=== PATIENT | female | born 1970 | race Caucasian/White ===

== ENCOUNTER 2017-08-05 00:32 | Observation (INO) | payer MEDICARE, MEDICAID ==
[2017-08-05 00:32] VITALS: BMI 29.2
[2017-08-05] MEDS ORDERED: Sodium Chloride 0.9% 1,000 ML IV STA (01:12)
--- NOTE | 2017-08-05 01:14 | ED PDOC ---
HPI:Nausea, Vomiting, Diarrhea Time Seen by Provider: 08/05/17 00:39 Chief Complaint (Nursing): Dizziness/Lightheaded Chief Complaint (Provider): gi problem History Per: Patient History/Exam Limitations: no limitations Onset/Duration Of Symptoms: Days (x1) Current Symptoms Are (Timing): Still Present Additional Complaint(s): Mili You is a 46 year old female with previous medical history of cerebral palsy and multiple sclerosis, who presents to the emergency department with a complaint of multiple episodes of non-bloody, non-bilious vomiting associated with nausea, dizziness onset of baclofen medication after having increased muscle spasms ongoing for 1 day. Denied toleration of PO fluids, fever , chills, cough, shortness of breath, chest pain or diarrhea. PMD: Doug You MD Past Medical History Reviewed: Historical Data, Nursing Documentation, Vital Signs Vital Signs: Last Vital Signs Temp 98.5 F 08/05/17 00:42 Pulse 101 H 08/05/17 00:42 Resp 98 H 08/05/17 00:42 BP 186/117 H 08/05/17 00:42 Pulse Ox 18 L 08/05/17 00:42 - Medical History PMH: Anxiety (not on meds), Depression, HTN, Migraine, Multiple Sclerosis Denies: HIV, Chronic Kidney Disease Other PMH: cerebral palsy - Family History Family History: States: Hypertension - Immunization History Hx Influenza Vaccination: Yes - Home Medications Home Medications: Ambulatory Orders Medication Instructions Recorded Metoprolol Succinate [Toprol XL] 100 mg PO DAILY #0 tab 12/18/14 Sertraline [Zoloft] 100 mg PO DAILY #0 tab 12/18/14 Topiramate [Topamax] 25 mg PO TID #0 tab 12/18/14 amLODIPine [Norvasc] 5 mg PO DAILY #0 tab 12/18/14 ARIPiprazole [Abilify] 5 mg PO DAILY 08/05/17 Baclofen [Lioresal] 10 mg PO DAILY 08/05/17 Famotidine [Pepcid] 20 mg PO BID 08/05/17 Naproxen [Naprosyn] 500 mg PO DAILY 08/05/17 diaZEpam [Valium] 5 mg PO DAILY 08/05/17 - Allergies Allergies/Adverse Reactions: Allergies Allergy/AdvReac Type Severity Reaction Status Date / Time Penicillins Allergy RASH Verified 08/05/17 00:45 Review of Systems ROS Statement: Except As Marked, All Systems Reviewed And Found Negative Constitutional: Negative for: Fever, Chills Cardiovascular: Negative for: Chest Pain Respiratory: Negative for: Cough, Shortness of Breath Gastrointestinal: Positive for: Nausea, Vomiting (non-bloody, non-bilious). Negative for: Diarrhea, Other (toleration of PO fluids) Neurological: Positive for: Dizziness Physical Exam - Reviewed Nursing Documentation Reviewed: Yes Vital Signs Reviewed: Yes - Physical Exam Appears: Positive for: Well, Non-toxic, No Acute Distress Head Exam: Positive for: ATRAUMATIC, NORMAL INSPECTION, NORMOCEPHALIC Skin: Positive for: Normal Color Eye Exam: Positive for: Normal appearance ENT: Positive for: Other (dry mucous membranes). Negative for: Normal ENT Inspection Neck: Positive for: Normal, Painless ROM, Supple. Negative for: Decreased ROM Cardiovascular/Chest: Positive for: Regular Rate, Rhythm, Chest Non Tender Respiratory: Positive for: Normal Breath Sounds, Accessory Muscle Use. Negative for: Decreased Breath Sounds, Respiratory Distress Gastrointestinal/Abdominal: Positive for: Normal Exam, Bowel Sounds, Soft. Negative for: Tenderness Extremity: Positive for: Normal ROM. Negative for: Tenderness, Pedal Edema, Deformity Neurologic/Psych: Positive for: Alert, Oriented - Laboratory Results Result Diagrams: 08/05/17 01:16 08/05/17 01:16 - ECG O2 Sat by Pulse Oximetry: 18 Medical Decision Making Medical Decision Making: Initial Impression: Nausea, vomiting, dizziness onset of baclofen Initial Plan: * EKG * Alcohol serum * CMP * Poison control consult * Urine * CBC * Accucheck Time: 0130 --Labs: no significant abnormalities noted. --Upon provider reevaluation, patient still has persistent nausea. --Discussed case with Dr. Ahumada who is covering for Dr. Doug You. Clinical Impression: Scribe Attestation: Documented by Lizzie Hoang, acting as a scribe for Ra Lopes MD. Provider Scribe Attestation: All medical record entries made by the Scribe were at my direction and personally dictated by me. I have reviewed the chart and agree that the record accurately reflects my personal performance of the history, physical exam, medical decision making, and the department course for this patient. I have also personally directed, reviewed, and agree with the discharge instructions and disposition. Disposition - Clinical Impression Clinical Impression: Dizziness, Intractable vomiting - Patient ED Disposition Is Patient to be Admitted: Yes Discussed With : Marquez Ahumada - Disposition Disposition Time: 01:30 Condition: FAIR - Pt Status Changed To: Hospital Disposition Of: Observation
[2017-08-05 01:21] LABS: BASO # 0.1 K/uL (0.0-0.2); BASO % 0.6 % (0.0-2.0); EOS # 0.1 K/uL (0.0-0.7); EOS % 0.5 % (0.0-4.0); HEMATOCRIT 45.6 % (34.0-47.0); LYMPH # 2.4 K/uL (1.0-4.3); LYMPH % 17.3 % (20.0-40.0); MEAN CELL VOLUME 86.6 fl (81.0-99.0); MEAN CORPUSCULAR HEMOGLOBIN 28.1 pg (27.0-31.0); MEAN CORPUSCULAR HGB CONC 32.5 g/dL (33.0-37.0); MONO # 0.7 K/uL (0.0-0.8); MONO % 4.7 % (0.0-10.0); NEUT # 10.8 K/uL (1.8-7.0); NEUT % 76.9 % (50.0-75.0); NRBC % 0.1 % (0.0-0.0); RED CELL DISTRIBUTION WIDTH 14.7 % (11.5-14.5)
[2017-08-05 01:30] LABS: ALB/GLOB RATIO 1.3 (1.0-2.1); ALCOHOL SERUM < 10 mg/dl (0-10); ALKALINE PHOSPHATASE 69 U/L (38-126); ALT/SGPT 30 U/L (9-52); AST/SGOT 24 U/L (14-36); BILIRUBIN,TOTAL 0.6 mg/dl (0.2-1.3); BLOOD UREA NITROGEN 18 mg/dl (7-17); CALCIUM 9.6 mg/dL (8.4-10.2); CARBON DIOXIDE 24 mmol/L (22-30); CHLORIDE 104 mmol/L (98-107); GFR AFRICAN-AMERICAN > 60; GLUCOSE,RANDOM 124 mg/dL (65-105); SODIUM 144 mmol/l (132-148); TOTAL PROTEIN 8.3 G/DL (6.3-8.2)
[2017-08-05] MEDS ORDERED: Dextrose 5%/Lactated Ringer's 1,000 ML IV SCH (06:30)
[2017-08-05 12:32] LABS: HEMATOCRIT 39.4 % (34.0-47.0); MEAN CELL VOLUME 84.7 fl (81.0-99.0); MEAN CORPUSCULAR HEMOGLOBIN 28.6 pg (27.0-31.0); MEAN CORPUSCULAR HGB CONC 33.8 g/dL (33.0-37.0); RED CELL DISTRIBUTION WIDTH 14.9 % (11.5-14.5); WHITE BLOOD COUNT 11.8 K/uL (4.8-10.8)
[2017-08-05] MEDS: Metoprolol Succinate 100 mg XL Tab PO SCH (13:34)
--- NOTE | 2017-08-05 16:36 | CARD ---
APPROVED REPORT EKG Measurement Heart [id number] <Conclusion> Normal sinus rhythm Nonspecific T wave abnormality Abnormal ECG
--- NOTE | 2017-08-06 00:20 | CP.PCM.HP ---
History of Present Illness - History of Present Illness History of Present Illness: This is a 46 y/o female with hx of MS and cerebral palsy was admitted for intractable vomiting and dizziness for a day. Took some baclofen but to avail Claims that she had multiple episodes of nonbloody and nonbilious vomiting. Past Patient History - Past Medical History & Family History Past Medical History?: Yes - Past Social History Smoking Status: Never Smoked - CARDIAC Hx Hypertension: Yes - PULMONARY Hx Respiratory Disorders: No - NEUROLOGICAL Hx Migraine: Yes Hx Multiple Sclerosis: Yes - HEENT Hx HEENT Problems: No - RENAL Hx Chronic Kidney Disease: No - ENDOCRINE/METABOLIC Hx Endocrine Disorders: No - HEMATOLOGICAL/ONCOLOGICAL Hx Human Immunodeficiency Virus (HIV): No - INTEGUMENTARY Hx Dermatological Problems: No - MUSCULOSKELETAL/RHEUMATOLOGICAL Hx Falls: Yes - GASTROINTESTINAL Hx Gastrointestinal Disorders: No - GENITOURINARY/GYNECOLOGICAL Hx Genitourinary Disorders: No - PSYCHIATRIC Hx Substance Use: No - SURGICAL HISTORY Hx Surgeries: No - ANESTHESIA Hx Anesthesia: Yes Hx Anesthesia Reactions: Yes Hx Malignant Hyperthermia: No Meds Allergies/Adverse Reactions: Allergies Allergy/AdvReac Type Severity Reaction Status Date / Time Penicillins Allergy RASH Verified 08/05/17 00:45 Results - Vital Signs Recent Vital Signs: Last Vital Signs Temp 98.5 F 08/05/17 16:15 Pulse 91 H 08/05/17 16:15 Resp 20 08/05/17 16:15 BP 134/88 08/05/17 16:15 Pulse Ox 93 L 08/05/17 16:15 - Labs Result Diagrams: 08/05/17 12:10 08/05/17 01:16 Labs: Laboratory Results - last 24 hr 08/05/17 08/05/17 08/05/17 01:16 01:16 01:16 WBC 14.0 H RBC 5.27 H Hgb 14.8 Hct 45.6 MCV 86.6 MCH 28.1 MCHC 32.5 L RDW 14.7 H Plt Count 266 MPV 9.0 Neut % (Auto) 76.9 H Lymph % (Auto) 17.3 L [place] % (Auto) 4.7 Eos % (Auto) 0.5 Baso % (Auto) 0.6 Neut # 10.8 H Lymph # 2.4 [place] # 0.7 Eos # 0.1 Baso # 0.1 Sodium 144 Potassium 4.0 Chloride 104 Carbon Dioxide 24 Anion Gap 20 BUN 18 H Creatinine 1.0 Est GFR ( Amer) > 60 Est GFR (Non-Af Amer) > 60 POC Glucose (mg/dL) 125 H Random Glucose 124 H Calcium 9.6 Total Bilirubin 0.6 AST 24 ALT 30 Alkaline Phosphatase 69 Total Protein 8.3 H Albumin 4.7 Globulin 3.6 Albumin/Globulin Ratio 1.3 Urine Opiates Screen Urine Methadone Screen Ur Barbiturates Screen Ur Phencyclidine Scrn Ur Amphetamines Screen U Benzodiazepines Scrn U Oth Cocaine Metabols U Cannabinoids Screen Alcohol, Quantitative < 10 08/05/17 08/05/17 03:39 12:10 WBC 11.8 H RBC 4.65 Hgb 13.3 Hct 39.4 MCV 84.7 MCH 28.6 MCHC 33.8 RDW 14.9 H Plt Count 233 MPV Neut % (Auto) Lymph % (Auto) [place] % (Auto) Eos % (Auto) Baso % (Auto) Neut # Lymph # [place] # Eos # Baso # Sodium Potassium Chloride Carbon Dioxide Anion Gap BUN Creatinine Est GFR ( Amer) Est GFR (Non-Af Amer) POC Glucose (mg/dL) Random Glucose Calcium Total Bilirubin AST ALT Alkaline Phosphatase Total Protein Albumin Globulin Albumin/Globulin Ratio Urine Opiates Screen Negative Urine Methadone Screen Negative Ur Barbiturates Screen Negative Ur Phencyclidine Scrn Negative Ur Amphetamines Screen Negative U Benzodiazepines Scrn Positive U Oth Cocaine Metabols Negative U Cannabinoids Screen Negative Alcohol, Quantitative
[2017-08-06 07:29] VITALS: BP 116/81; PULSE 73; RESP 18; TEMP 98.1; O2SAT 96
[2017-08-06] MEDS: Metoprolol Succinate 100 mg XL Tab PO SCH (09:00)
--- NOTE | 2017-08-06 10:43 | CP.PCM.DIS ---
Provider - Provider Date of Admission: 08/05/17 01:13 Attending physician: Marquez Ahumada MD Hospital Course - Lab Results Lab Results: Most Recent Lab Values WBC 11.8 K/uL (4.8-10.8) H 08/05/17 12:10 RBC 4.65 Mil/uL (3.80-5.20) 08/05/17 12:10 Hgb 13.3 g/dL (12.0-16.0) 08/05/17 12:10 Hct 39.4 % (34.0-47.0) 08/05/17 12:10 MCV 84.7 fl (81.0-99.0) 08/05/17 12:10 MCH 28.6 pg (27.0-31.0) 08/05/17 12:10 MCHC 33.8 g/dL (33.0-37.0) 08/05/17 12:10 RDW 14.9 % (11.5-14.5) H 08/05/17 12:10 Plt Count 233 K/uL (130-400) 08/05/17 12:10 MPV 9.0 fl (7.2-11.7) 08/05/17 01:16 Neut % (Auto) 76.9 % (50.0-75.0) H 08/05/17 01:16 Lymph % (Auto) 17.3 % (20.0-40.0) L 08/05/17 01:16 [place] % (Auto) 4.7 % (0.0-10.0) 08/05/17 01:16 Eos % (Auto) 0.5 % (0.0-4.0) 08/05/17 01:16 Baso % (Auto) 0.6 % (0.0-2.0) 08/05/17 01:16 Neut # 10.8 K/uL (1.8-7.0) H 08/05/17 01:16 Lymph # 2.4 K/uL (1.0-4.3) 08/05/17 01:16 [place] # 0.7 K/uL (0.0-0.8) 08/05/17 01:16 Eos # 0.1 K/uL (0.0-0.7) 08/05/17 01:16 Baso # 0.1 K/uL (0.0-0.2) 08/05/17 01:16 Sodium 144 mmol/l (132-148) 08/05/17 01:16 Potassium 4.0 MMOL/L (3.6-5.0) 08/05/17 01:16 Chloride 104 mmol/L (98-107) 08/05/17 01:16 Carbon Dioxide 24 mmol/L (22-30) 08/05/17 01:16 Anion Gap 20 (10-20) 08/05/17 01:16 BUN 18 mg/dl (7-17) H 08/05/17 01:16 Creatinine 1.0 mg/dL (0.7-1.2) 08/05/17 01:16 Est GFR ( Amer) > 60 08/05/17 01:16 Est GFR (Non-Af Amer) > 60 08/05/17 01:16 POC Glucose (mg/dL) 125 mg/dL (65-110) H 08/05/17 01:16 Random Glucose 124 mg/dL (65-105) H 08/05/17 01:16 Calcium 9.6 mg/dL (8.4-10.2) 08/05/17 01:16 Total Bilirubin 0.6 mg/dl (0.2-1.3) 08/05/17 01:16 AST 24 U/L (14-36) 08/05/17 01:16 ALT 30 U/L (9-52) 08/05/17 01:16 Alkaline Phosphatase 69 U/L (38-126) 08/05/17 01:16 Total Protein 8.3 G/DL (6.3-8.2) H 08/05/17 01:16 Albumin 4.7 g/dL (3.5-5.0) 08/05/17 01:16 Globulin 3.6 gm/dL (2.2-3.9) 08/05/17 01:16 Albumin/Globulin Ratio 1.3 (1.0-2.1) 08/05/17 01:16 Urine Opiates Screen Negative (NEGATIVE) 08/05/17 03:39 Urine Methadone Screen Negative (NEGATIVE) 08/05/17 03:39 Ur Barbiturates Screen Negative (NEGATIVE) 08/05/17 03:39 Ur Phencyclidine Scrn Negative (NEGATIVE) 08/05/17 03:39 Ur Amphetamines Screen Negative (NEGATIVE) 08/05/17 03:39 U Benzodiazepines Scrn Positive (NEGATIVE) 08/05/17 03:39 U Oth Cocaine Metabols Negative (NEGATIVE) 08/05/17 03:39 U Cannabinoids Screen Negative (NEGATIVE) 08/05/17 03:39 Alcohol, Quantitative < 10 mg/dl (0-10) 08/05/17 01:16 - Hospital Course Hospital Course: This is a 46 y/o female admitted for episodes of vomiting and dizziness for 1 days. Discharge Exam - Head Exam Head Exam: ATRAUMATIC, NORMAL INSPECTION, NORMOCEPHALIC Discharge Plan - Follow Up Plan Condition: FAIR Disposition: HOME/ ROUTINE Instructions: Acute Nausea and Vomiting (DC), Dizziness (GEN)
--- NOTE | 2017-08-07 08:31 | CON ---
DATE: 08/05/2017 REFERRING DOCTOR: Marquez Ahumada MD REASON FOR CONSULTATION: Nausea, vomiting. HISTORY OF PRESENT ILLNESS: This is a 46-year-old female with a history of cerebral palsy, multiple sclerosis. Patient complains of multiple episodes of non-bloody vomiting, some nausea, had been taken Baclofen for the past couple of days or so. At this point, is doing well, the nausea has improved, the vomiting has improved, has no pain, no loss of appetite. Currently, lying in comfortably in bed, in no apparent distress. PAST MEDICAL HISTORY: As above. SURGICAL HISTORY: As above. MEDICATIONS: Reviewed. REVIEW OF SYSTEMS: All other systems have been reviewed and they are negative apart from the HPI. PHYSICAL EXAMINATION: GENERAL: This is a pleasant middle-aged female, lying in bed comfortably, in no apparent distress. VITAL SIGNS: Reviewed in the hospital, grossly unremarkable. HEENT: Head, normocephalic and atraumatic. Eyes, pupils are equal, round, and reactive to light bilaterally. No conjunctival pallor or icterus. NECK: Supple. Normal range of motion. No lymphadenopathy appreciated. LUNGS: Coarse breath sounds bilaterally. HEART: S1 and S2. Regular rate and rhythm. No murmurs appreciated. ABDOMEN: Soft, nontender. Bowel sounds present. No rebound. No guarding. RECTAL: Deferred. EXTREMITIES: Pulses felt bilaterally. SKIN: Warm, dry, and intact. NEUROLOGIC: A and O x3. LABORATORY DATA: Labs were reviewed. WBC is 7.8, hemoglobin 13.3, hematocrit 39.4, platelet count of 124. Urine tox is negative. ASSESSMENT AND PLAN: This is a 46-year-old female with unexplained nausea and vomiting, all of which has resolved. Recommend Zofran p.r.n. From a gastrointestinal standpoint, I would recommend endoscopy as on outpatient. Thank you for the consult. Benjy Short MD/ PhD cc: Marquez Ahumada MD.
== END 2017-08-06 13:11 | disposition home or self-care (01) ==
LOC: H.ER 00:32 → H.MEDSURG1 01:13
PROVIDERS: ADMIT Family Medicine; ATTEND Family Medicine
DX: R11.2 Nausea with vomiting, unspecified (principal); R42 Dizziness and giddiness; G35 Multiple sclerosis; G80.9 Cerebral palsy, unspecified; Z88.0 Allergy status to penicillin; I10 Essential (primary) hypertension; F32.9 Major depressive disorder, single episode, unspecified
CPT/HCPCS: 80053; 82948; 85025; 85027; 93005; 99284; G0378; G0480; J2405; J7040

== ENCOUNTER 2018-12-28 21:35 | Emergency (ER) | payer MEDICARE, MEDICAID ==
[2018-12-28 21:35] VITALS: BMI 29.2
[2018-12-28 21:41] VITALS: RESP 16; TEMP 97.9; O2SAT 98
[2018-12-28] MEDS ORDERED: Albuterol-Ipratrop 3 mg / 0.5 (3 ml) UD INH STA ×2 (22:41→23:59)
--- NOTE | 2018-12-29 00:02 | ED PDOC ---
HPI: CCC, URI, Sore Throat Time Seen by Provider: 12/28/18 21:57 Chief Complaint (Nursing): Flu-like Symptoms Chief Complaint (Provider): cough History Per: Patient History/Exam Limitations: no limitations Additional Complaint(s): 48 y/o F with hx of cerebral palsy and HTN who presents with cough and chest congestion fort he past 3 days. Pt states that she began having body aches 3 days ago, but she is no longer having this. She developed a cough the following day occasionally productive of sputum but overall dry, mostly at night. Denies fever, chills, night sweats, SOB, chest pain, ear pain. Mild sore throat. Past Medical History Vital Signs: Last Vital Signs Temp 97.9 F 12/28/18 21:37 Pulse 94 H 12/28/18 21:37 Resp 16 12/28/18 21:37 BP 124/95 H 12/28/18 21:37 Pulse Ox 98 12/28/18 21:37 - Medical History PMH: Anxiety (not on meds), Depression, HTN, Migraine, Multiple Sclerosis Denies: HIV, Chronic Kidney Disease Other PMH: cerebral palsy - Family History Family History: States: Hypertension - Immunization History Hx Influenza Vaccination: Yes - Home Medications Home Medications: Ambulatory Orders Medication Instructions Recorded Metoprolol Succinate XL [Toprol XL] 100 mg PO DAILY #0 tab 12/18/14 Sertraline [Zoloft] 100 mg PO DAILY #0 tab 12/18/14 Topiramate [Topamax] 25 mg PO TID #0 tab 12/18/14 amLODIPine [Norvasc] 5 mg PO DAILY #0 tab 12/18/14 ARIPiprazole [Abilify] 5 mg PO DAILY 08/05/17 Famotidine [Pepcid] 20 mg PO BID 08/05/17 diaZEpam [Valium] 5 mg PO DAILY 08/05/17 Albuterol 0.083% [Albuterol 0.083% 3 ml IH Q6 PRN 7 Days neb 12/29/18 Inhal Rose (2.5 mg/3 ml) UD] Benzonatate [Tessalon Perles] 100 mg PO BID PRN 7 Days sgl 12/29/18 Nebulizer Accessories [Adult 1 each MC ONCE #1 each 12/29/18 Aerosol Mask] Nebulizer [Aeroneb Go Nebulizer] 1 each ONCE #1 each 12/29/18 - Allergies Allergies/Adverse Reactions: Allergies Allergy/AdvReac Type Severity Reaction Status Date / Time Penicillins Allergy RASH Verified 08/05/17 00:45 Review of Systems Constitutional: Negative for: Fever, Chills Cardiovascular: Negative for: Chest Pain Respiratory: Positive for: Cough. Negative for: Shortness of Breath Gastrointestinal: Negative for: Nausea, Vomiting Physical Exam - Reviewed Nursing Documentation Reviewed: Yes Vital Signs Reviewed: Yes - Physical Exam Appears: Positive for: Uncomfortable Skin: Positive for: Normal Color ENT: Positive for: Normal ENT Inspection Cardiovascular/Chest: Positive for: Regular Rate, Rhythm Respiratory: Positive for: Rhonchi (scattered rhonchi and wheezes B/L) Neurological/Psych: Positive for: Awake, Alert, Oriented - ECG O2 Sat by Pulse Oximetry: 98 Nebulizer Treatments/Peak Flow - Duonebs Number of Bronchodilator Doses given?: 2 - Steroid Treatment Steroid: Not Clinically Indicated - Clinical Response Clinical Response: Improved Medical Decision Making Medical Decision Making: CXR Duoneb x 1 Rapid flu Rapid flu negative CXR read by me: possible bronchitis, no pulmonary consolidation appreciated. Re-evaluated: lungs clear, persistent cough, denies SOB. DuoNeb x 1 ordered Diagnosis of likely viral bronchitis explained to patient and that no antibiotic indicated at this time. Patient demonstrated understanding. Stable for d/c home with return instructions given. Disposition - Clinical Impression Clinical Impression: Bronchitis - Patient ED Disposition Is Patient to be Admitted: No Counseled Patient/Family Regarding: Studies Performed, Diagnosis, Need For Followup, Rx Given - Disposition Referrals: Doug You MD [Family Provider] - Disposition: Routine/Home Disposition Time: 01:45 Condition: STABLE Additional Instructions: Follow up with your primary care doctor in the next 2 - 3 days. Use Albuterol nebulizer and Tessalon Perles as needed for cough. Return to ER if you develop shortness of breath or fevers. Prescriptions: Albuterol 0.083% [Albuterol 0.083% Inhal Rose (2.5 mg/3 ml) UD] 3 ml IH Q6 PRN 7 Days neb PRN Reason: Cough And Congestion Benzonatate [Tessalon Perles] 100 mg PO BID PRN 7 Days sgl PRN Reason: Cough Nebulizer [Aeroneb Go Nebulizer] 1 each MC ONCE #1 each Nebulizer Accessories [Adult Aerosol Mask] 1 each MC ONCE #1 each Instructions: Acute Bronchitis, Adult (DC) Forms: [facility] (Thai) Print Language: [place]
[2018-12-29] MEDS ORDERED: Albuterol-Ipratrop 3 mg / 0.5 (3 ml) UD ONE (00:05)
[2018-12-29 01:19] VITALS: BP 127/78; PULSE 81
--- NOTE | 2018-12-29 10:49 | RAD ---
Date of service: 12/28/2018 HISTORY: shortness of breath, cough COMPARISON: Comparison chest 12/12/2014 TECHNIQUE: Chest PA and lateral views FINDINGS: LUNGS: Poor inspiration with low lung volumes crowded bronchovascular markings and mild bibasilar atelectasis PLEURA: No significant pleural effusion identified. No pneumothorax apparent. CARDIOVASCULAR: No aortic atherosclerotic calcification present. Normal cardiac size. No pulmonary vascular congestion. OSSEOUS STRUCTURES: No significant abnormalities. VISUALIZED UPPER ABDOMEN: Normal. OTHER FINDINGS: None. IMPRESSION: Poor inspiration with low lung volumes crowded bronchovascular markings and mild bibasilar atelectasis
== END 2018-12-29 02:32 | disposition home or self-care (01) ==
LOC: H.ER 21:35
DX: J40 Bronchitis, not specified as acute or chronic (principal); G80.9 Cerebral palsy, unspecified; Z88.0 Allergy status to penicillin; Z79.899 Other long term (current) drug therapy; I10 Essential (primary) hypertension

== ENCOUNTER 2019-01-20 14:02 | Emergency (ER) | payer MEDICARE, MEDICAID ==
[2019-01-20 14:03] VITALS: BMI 29.2
[2019-01-20 14:08] VITALS: TEMP 97.7; O2SAT 100
--- NOTE | 2019-01-20 15:41 | ED PDOC ---
HPI: Trauma/Fall - HPI Time Seen by Provider: 01/20/19 15:09 Chief Complaint (Nursing): Trauma Chief Complaint (Provider): Trauma History Per: Patient History/Exam Limitations: no limitations Onset/Duration Of Symptoms: Hrs Injury Occurred (Timing): Just Before Arrival Additional Complaint(s): 48 y/o female with a PMHx of Cerebral Palsy, HTN and Bipolar Disorder presents to the ED for evaluation of head pain s/p trip and fall, onset prior to arrival. Patient reports she was home and walked into her bathroom when she accidentally tripped and fell, hitting her head against an object. Patient cannot recall what exactly is the object. Patient is unsure if she lost consciousness. At this time, patient is complaining of a headache. Otherwise, patient denies nausea, vomiting, dizziness, other injury, pain anywhere else on the body and taking any medications for symptoms relief. PMD:Doug You Past Medical History Reviewed: Historical Data, Nursing Documentation, Vital Signs Vital Signs: Last Vital Signs Temp 97.7 F 01/20/19 14:07 Pulse 100 H 01/20/19 14:07 Resp 20 01/20/19 14:07 BP 138/89 01/20/19 14:07 Pulse Ox 100 01/20/19 14:07 - Medical History PMH: Anxiety (not on meds), Depression, HTN, Migraine, Multiple Sclerosis Denies: HIV, Chronic Kidney Disease - Surgical History Surgical History: No Surg Hx - Family History Family History: States: Unknown Family Hx, Hypertension - Living Arrangements Living Arrangements: Alone - Immunization History Hx Influenza Vaccination: Yes - Home Medications Home Medications: Ambulatory Orders Medication Instructions Recorded Metoprolol Succinate XL [Toprol XL] 100 mg PO DAILY #0 tab 12/18/14 Sertraline [Zoloft] 100 mg PO DAILY #0 tab 12/18/14 Topiramate [Topamax] 25 mg PO TID #0 tab 12/18/14 amLODIPine [Norvasc] 5 mg PO DAILY #0 tab 12/18/14 ARIPiprazole [Abilify] 5 mg PO DAILY 08/05/17 Famotidine [Pepcid] 20 mg PO BID 08/05/17 diaZEpam [Valium] 5 mg PO DAILY 08/05/17 Albuterol 0.083% [Albuterol 0.083% 3 ml IH Q6 PRN 7 Days neb 12/29/18 Inhal Rose (2.5 mg/3 ml) UD] Benzonatate [Tessalon Perles] 100 mg PO BID PRN 7 Days sgl 12/29/18 Nebulizer Accessories [Adult 1 each MC ONCE #1 each 12/29/18 Aerosol Mask] Nebulizer [Aeroneb Go Nebulizer] 1 each MC ONCE #1 each 12/29/18 Ciprofloxacin [Cipro] 500 mg PO Q12H #13 tab 01/20/19 - Allergies Allergies/Adverse Reactions: Allergies Allergy/AdvReac Type Severity Reaction Status Date / Time Penicillins Allergy RASH Verified 08/05/17 00:45 Review of Systems ROS Statement: Except As Marked, All Systems Reviewed And Found Negative Gastrointestinal: Negative for: Nausea Musculoskeletal: Positive for: Other (HEAD PAIN) Neurological: Positive for: Headache, Other (possible loss of consciousness). Negative for: Dizziness Physical Exam - Reviewed Nursing Documentation Reviewed: Yes Vital Signs Reviewed: Yes - Physical Exam Appears: Positive for: Uncomfortable Head Exam: Negative for: NORMAL INSPECTION (Large hematoma to the left temporal area. Additional hematoma noted to the right forehead with a superficial abrasian. Tenderness to palpation around affected areas. ) Skin: Positive for: Normal Color, Warm, Dry Eye Exam: Positive for: Normal appearance, EOMI, PERRL ENT: Positive for: Other (0.5 cm laceration noted to the pinna of the right ear. No fluid or blood noted in the ear canal ) Neck: Positive for: Normal, Painless ROM Cardiovascular/Chest: Positive for: Regular Rate, Rhythm. Negative for: Murmur Respiratory: Positive for: Normal Breath Sounds. Negative for: Respiratory Distress Gastrointestinal/Abdominal: Positive for: Normal Exam, Soft. Negative for: Tenderness Back: Positive for: Normal Inspection. Negative for: L CVA Tenderness, R CVA Tenderness, Vertebral Tenderness Extremity: Positive for: Normal ROM. Negative for: Deformity Neurological/Psych: Positive for: Awake, Alert, Oriented (x3). Negative for: Motor/Sensory Deficits - ECG O2 Sat by Pulse Oximetry: 100 (RA) Pulse Ox Interpretation: Normal Medical Decision Making Medical Decision Making: Time: 151 Plan: -- CT Head w/o Contrast -- CT Maxillofacial w/o Contrast -- ED Urine -- Tylenol 975 mg PO 16:17 was called on a consult for left ear laceration repair. He will come and examine the patient's ear in the ED. 16:[address] FINDINGS: Examination appears stable in the interval. HEMORRHAGE: No intracranial hemorrhage. BRAIN: Small area of bandlike cystic encephalomalacia is appreciate the superior right periventricular white matter at the right frontal lobe deep white matter with remainder the examination stable and otherwise unremarkable including infratentorial parenchyma/brainstem. There is no mass effect or suspicious extra-axial collection appreciated. No cortical lucency is identified. VENTRICLES: Unremarkable. No hydrocephalus. CALVARIUM: No destructive bony lesion or displaced fracture identified including through the skullbase. Trace left frontal scalp edema is questioned at the vertex. PARANASAL SINUSES: Unremarkable as visualized. No significant inflammatory changes. MASTOID AIR CELLS: Unremarkable as visualized. No inflammatory changes. OTHER FINDINGS: None. IMPRESSION: Stable limited 6 encephalomalacia at the right frontal periventricular white matter with brain parenchyma otherwise unremarkable above and below the tentorium including the brainstem. No intracranial hemorrhage or mass-effect. Trace left frontal scalp vertex soft tissue edema in question. 16:[address] FINDINGS: NASAL BONES: Unremarkable. ORBITS: Unremarkable. PARANASAL SINUSES/ MASTOIDS: Clear. MAXILLA: No fracture identified. Moderate left facial contusion identified lateral to the left temporalis region extending inferior to the level of the left zygomatic arch into overlying left maxillary and even posterior mandibular soft tissues. Likely hematoma intermixed amongst reticular edema. No retained radiodense foreign body or emphysematous soft tissue changes associated. MANDIBLE/ TEMPOROMANDIBULAR JOINTS: Unremarkable. SKULL BASE: Unremarkable. TEMPORAL BONES: Middle ears and mastoid grossly unremarkable. OTHER FINDINGS: None. IMPRESSION: No fracture throughout the facial bones including bilateral orbits. Prominent left temporalis maxilla and posterior mandibular subcutaneous soft tissue contusion including likely small hematoma. No retained radiodense foreign body or emphysema soft tissue changes associated 17:[address] Boles, patient started on Cipro 500 mg twice a day for 7 days. The first does to be given in the ED today. Patient advised to follow up with Dr. Boles or her PMD in a week. 18:54 Patient will be taken home by transportation on stretcher. Patient reports that she has her keys and will be able to get home. Patient advised to follow up with Dr. Britton on Sunday. Patient states understanding and is in agreement with plan. Patient advised to return if symptoms worsen. ------- Scribe Attestation: Documented by Jon Brewer, acting as a scribe DIXON Mayorga. Provider Scribe Attestation: All medical record entries made by the Scribe were at my direction and personally dictated by me. I have reviewed the chart and agree that the record accurately reflects my personal performance of the history, physical exam, medical decision making, and the department course for this patient. I have also personally directed, reviewed, and agree with the discharge instructions and disposition. Scribe Attestation: Documented by Cecelia Lara, acting as a scribe Leonela METCALF Provider Scribe Attestation: All medical record entries made by the Scribe were at my direction and personally dictated by me. I have reviewed the chart and agree that the record accurately reflects my personal performance of the history, physical exam, medical decision making, and the department course for this patient. I have also personally directed, reviewed, and agree with the discharge instructions and disposition. Disposition - Clinical Impression Clinical Impression: Fall, Contusion of face - Patient ED Disposition Is Patient to be Admitted: No Counseled Patient/Family Regarding: Diagnosis, Need For Followup, Rx Given - Disposition Referrals: Cierra Boles MD [Medical Doctor] - Doug You MD [Family Provider] - Disposition: Routine/Home Disposition Time: 17:28 Condition: IMPROVED Prescriptions: Ciprofloxacin [Cipro] 500 mg PO Q12H #13 tab Instructions: Preventing Falls, Minor Head Injury Print Language: [place] - POA Present On Arrival: None
[2019-01-20] MEDS ORDERED: Tdap Vaccine 0.5 ml Vial (10-64 yrs) IM ONE ×2 (16:18→18:06)
--- NOTE | 2019-01-20 16:22 | CT ---
Date of service: 01/20/2019 PROCEDURE: CT HEAD WITHOUT CONTRAST. HISTORY: FALL/ POSS LOC COMPARISON: Unenhanced head CT 10/31/2012. TECHNIQUE: Axial computed tomography images were obtained through the head/brain without intravenous contrast. Radiation dose: Total exam DLP = 852.52 mGy-cm. This CT exam was performed using one or more of the following dose reduction techniques: Automated exposure control, adjustment of the mA and/or kV according to patient size, and/or use of iterative reconstruction technique. FINDINGS: Examination appears stable in the interval. HEMORRHAGE: No intracranial hemorrhage. BRAIN: Small area of bandlike cystic encephalomalacia is appreciate the superior right periventricular white matter at the right frontal lobe deep white matter with remainder the examination stable and otherwise unremarkable including infratentorial parenchyma/brainstem. There is no mass effect or suspicious extra-axial collection appreciated. No cortical lucency is identified. VENTRICLES: Unremarkable. No hydrocephalus. CALVARIUM: No destructive bony lesion or displaced fracture identified including through the skullbase. Trace left frontal scalp edema is questioned at the vertex. PARANASAL SINUSES: Unremarkable as visualized. No significant inflammatory changes. MASTOID AIR CELLS: Unremarkable as visualized. No inflammatory changes. OTHER FINDINGS: None. IMPRESSION: Stable limited 6 encephalomalacia at the right frontal periventricular white matter with brain parenchyma otherwise unremarkable above and below the tentorium including the brainstem. No intracranial hemorrhage or mass-effect. Trace left frontal scalp vertex soft tissue edema in question.
[2019-01-20] MEDS ORDERED: Lidocaine 2% Inj (20ml) INFIL ONE (16:48)
[2019-01-20] MEDS ORDERED: Lidocaine 1% w Epi 1:100,000 Inj ONE (16:51)
--- NOTE | 2019-01-20 16:57 | CT ---
Date of service: 01/20/2019 PROCEDURE: CT MAXILLOFACIAL BONES WITHOUT CONTRAST HISTORY: fALL COMPARISON: None available. TECHNIQUE: Contiguous axial CT images of the maxillofacial bones were obtained. Coronal and sagittal reformats were generated. Radiation dose: Total exam DLP = 778.72 mGy-cm. This CT exam was performed using one or more of the following dose reduction techniques: Automated exposure control, adjustment of the mA and/or kV according to patient size, and/or use of iterative reconstruction technique. FINDINGS: NASAL BONES: Unremarkable. ORBITS: Unremarkable. PARANASAL SINUSES/ MASTOIDS: Clear. MAXILLA: No fracture identified. Moderate left facial contusion identified lateral to the left temporalis region extending inferior to the level of the left zygomatic arch into overlying left maxillary and even posterior mandibular soft tissues. Likely hematoma intermixed amongst reticular edema. No retained radiodense foreign body or emphysematous soft tissue changes associated. MANDIBLE/ TEMPOROMANDIBULAR JOINTS: Unremarkable. SKULL BASE: Unremarkable. TEMPORAL BONES: Middle ears and mastoid grossly unremarkable. OTHER FINDINGS: None. IMPRESSION: No fracture throughout the facial bones including bilateral orbits. Prominent left temporalis maxilla and posterior mandibular subcutaneous soft tissue contusion including likely small hematoma. No retained radiodense foreign body or emphysema soft tissue changes associated
[2019-01-20] MEDS ORDERED: Povidone Iodine Topical 10% Sol ONE (16:58)
[2019-01-20 18:55] VITALS: BP 139/89; PULSE 97; RESP 18
== END 2019-01-20 18:55 | disposition home or self-care (01) ==
LOC: H.ER 14:02
DX: S01.312A Laceration without foreign body of left ear, initial encounter (principal); Z86.59 Personal history of other mental and behavioral disorders; G80.9 Cerebral palsy, unspecified; I10 Essential (primary) hypertension; S00.83XA Contusion of other part of head, initial encounter; W01.0XXA Fall on same level from slipping, tripping and stumbling without subsequent striking against object, initial encounter; Z88.0 Allergy status to penicillin; Z23 Encounter for immunization